=== PATIENT | male | born 1980 | race Caucasian/White ===

== ENCOUNTER 2018-02-19 23:04 | Emergency (ER) | payer MEDICAID ==
[~2018-02-19] VITALS: Ht 172.7 cm; Wt 74.4 kg
[2018-02-19 23:24] VITALS: Ht 172.7 cm; Wt 74.4 kg
[2018-02-20 00:43] VITALS: BP 146/86
== END 2018-02-20 00:43 | disposition home or self-care (01) ==
LOC: ED 23:04
DX: S61.215D Laceration without foreign body of left ring finger without damage to nail, subsequent encounter (principal); X58.XXXD Exposure to other specified factors, subsequent encounter

== ENCOUNTER 2019-06-04 08:57 | Emergency (ER) | payer MEDICAID ==
[~2019-06-04] VITALS: Ht 172.7 cm; Wt 80.7 kg
[2019-06-04 09:03] VITALS: BP 130/84; Ht 172.7 cm; Wt 80.7 kg
== END 2019-06-04 11:13 | disposition home or self-care (01) ==
LOC: ED 08:57
DX: K12.1 Other forms of stomatitis (principal); K14.0 Glossitis; K14.9 Disease of tongue, unspecified; F17.210 Nicotine dependence, cigarettes, uncomplicated; Z71.6 Tobacco abuse counseling; Z98.890 Other specified postprocedural states
CPT/HCPCS: 99406

== ENCOUNTER 2019-08-11 20:23 | Emergency (ER) | payer SELFPAY ==
[~2019-08-11] VITALS: Ht 172.7 cm; Wt 75.5 kg
[2019-08-11 20:27] VITALS: Ht 172.7 cm; Wt 75.5 kg
[2019-08-11 20:54] VITALS: BP 127/71
== END 2019-08-11 20:54 | disposition home or self-care (01) ==
LOC: ED 20:23
DX: L03.114 Cellulitis of left upper limb (principal); L03.113 Cellulitis of right upper limb; Z98.890 Other specified postprocedural states